=== PATIENT | female | born 1995 | race Asian ===

== ENCOUNTER 2023-10-10 07:31 | Inpatient (IN) | payer BC ==
[2023-10-10] MEDS ORDERED: Methylergonovine 0.2 MG/1 ML Amp IM PRN (16:48)
[2023-10-10] MEDS ORDERED: Misoprostol 200 MCG Tab PO PRN (16:48)
[2023-10-10] MEDS ORDERED: Sodium Chloride 0.9% 10 ML Syringe FLUSH PRN (16:48)
[2023-10-10] MEDS ORDERED: Tranexamic Acid IN NACL,ISO-OS 1,000 MG in Premix Bag 1 BAG IV PRN (16:48)
[2023-10-10] MEDS ORDERED: Sodium Chloride 0.9% 20 ML SDV IV PRN (16:48)
[2023-10-10] MEDS ORDERED: Lidocaine 1% 50 ML MDV INJECT PRN (16:48)
[2023-10-10] MEDS ORDERED: Carboprost Tromethamine 250 MCG/1 mL Vial IM PRN (16:48)
[2023-10-10] MEDS ORDERED: Terbutaline 1 MG/ML SDV SUBCUT PRN (16:48)
[2023-10-10] MEDS ORDERED: Water For Irrigation,Sterile 1,000 ML Container IRR PRN (16:48)
[2023-10-10] MEDS ORDERED: Butorphanol 2 MG/ML SDV IVPUSH PRN (16:48)
[2023-10-10] MEDS ORDERED: Sodium Chloride 0.9% 2.5 ML Syringe FLUSH PRN (16:48)
[2023-10-10] MEDS ORDERED: Oxytocin/0.9 % Sodium Chloride 30 UNIT/500 ML BAG IV SCH ×2 (17:00)
[2023-10-10] MEDS: Misoprostol 25 MCG (1/4 of 100 MCG) Tab VAG PRN ×2 (18:07→22:12)
[2023-10-10 18:52] LABS: HEMATOCRIT 37.6 % (37.0-47.0); HEMOGLOBIN 13.3 g/dL (12.0-16.0); MEAN CORPUSCULAR HGB CONC 35.4 g/dL (32.0-36.0); MEAN CORPUSCULAR VOLUME 96.2 fL (83.0-99.0); MEAN PLATELET VOLUME 13.6 fL (9.4-12.3); PLATELET COUNT,PLT 155 K/uL (150-400); RED BLOOD CELL COUNT 3.91 M/uL (4.10-5.30); WHITE BLOOD CELL COUNT,WBC 8.48 K/uL (3.9-11.3)
[2023-10-10 19:14] LABS: A/G RATIO 0.8 (0.9-1.6); ALBUMIN 2.7 g/dL (3.4-5.0); BILIRUBIN TOTAL 0.2 mg/dL (0.2-1.0); CALCIUM 8.8 mg/dL (8.5-10.1); CARBON DIOXIDE,CO2 19.9 mmol/L (21.0-32.0); CREATININE 0.7 mg/dL (0.6-1.0); EST CRCL DRUG DOSING (CG) 98.98 mL/min; POTASSIUM,K 4.1 mmol/L (3.5-5.1); PROTEIN TOTAL,TP 6.1 g/dL (6.4-8.2)
[2023-10-10 20:40] LABS: CREATININE,URINE RAND 58.1 mg/dL; PROTEIN CREATININE RATIO,URINE 0.3
[2023-10-10] MEDS: Labetalol 100 MG Tab PO SCH (21:06)
[2023-10-11] MEDS ORDERED: Calcium Carbonate 500 MG Tab.Chew PO PRN (03:07)
[2023-10-11 06:28] LABS: HEMATOCRIT 39.5 % (37.0-47.0); MEAN CORPUSCULAR HEMOGLOBIN 33.8 pg (28.0-32.0); MEAN CORPUSCULAR HGB CONC 35.4 g/dL (32.0-36.0); MEAN CORPUSCULAR VOLUME 95.4 fL (83.0-99.0); MEAN PLATELET VOLUME 12.2 fL (9.4-12.3); PLATELET COUNT,PLT 145 K/uL (150-400); RED BLOOD CELL COUNT 4.14 M/uL (4.10-5.30); WHITE BLOOD CELL COUNT,WBC 10.64 K/uL (3.9-11.3)
[2023-10-11] MEDS ORDERED: Bupivacaine 0.25% 30 ML SDV ONE (06:48)
[2023-10-11] MEDS ORDERED: fentaNYL 100 MCG/2 ML SDV ONE (06:48)
[2023-10-11] MEDS ORDERED: Ketorolac 30 MG/ML SDV ONE (06:48)
[2023-10-11] MEDS ORDERED: Ropivacaine 0.5% 5 MG/ML 30 ML SDV ONE (06:48)
[2023-10-11] MEDS ORDERED: EPINEPHrine 1 MG/1 ML Amp ONE (06:48)
[2023-10-11] MEDS ORDERED: Oxytocin 10 Units/1 ML SDV ONE (06:48)
[2023-10-11] MEDS ORDERED: ceFAZolin 1 GM Vial ONE (06:48)
[2023-10-11] MEDS ORDERED: Ondansetron 4 MG/2 ML SDV ONE (06:48)
[2023-10-11] MEDS ORDERED: Morphine PF 10 MG/10 ML SDV ONE (06:49)
[2023-10-11 06:58] LABS: INR 0.91 (0.86-1.11); PTT,PARTIAL THROMBOPLSTIN TIME 25.9 SEC (23.9-30.7)
[2023-10-11] MEDS ORDERED: Tranexamic Acid 1,000 MG/10 ML Vial ONE (07:23)
[2023-10-11] MEDS ORDERED: Oxytocin 10 Units/1 ML SDV IM PRN (08:12)
[2023-10-11] MEDS ORDERED: Ondansetron 4 MG/2 ML SDV IVPUSH PRN ×3 (08:12→08:33)
[2023-10-11] MEDS ORDERED: diphenhydrAMINE 50 MG/ML SDV IVPUSH PRN ×2 (08:12→08:33)
[2023-10-11] MEDS ORDERED: Acetaminophen/oxyCODONE 325-5 MG Tab PO PRN ×3 (08:12→08:33)
[2023-10-11] MEDS ORDERED: Misoprostol 200 MCG Tab RECTAL PRN (08:12)
[2023-10-11] MEDS ORDERED: Bisacodyl 10 MG Supp RECTAL PRN (08:12)
[2023-10-11] MEDS ORDERED: Lactated Ringers 1,000 ML IV SCH (08:15)
[2023-10-11] MEDS ORDERED: droPERidol 5 MG/2 ML SDV IVPUSH PRN (08:33)
[2023-10-11] MEDS ORDERED: fentaNYL 100 MCG/2 ML SDV IVPUSH PRN (08:33)
[2023-10-11] MEDS ORDERED: Albuterol 0.083% 2.5 MG/3 ML Neb Soln NEB PRN (08:33)
[2023-10-11] MEDS ORDERED: Metoclopramide 10 MG/2 ML SDV IVPUSH PRN (08:33)
[2023-10-11] MEDS ORDERED: HYDROmorphone 1 MG/ML Syringe IVPUSH PRN (08:33)
[2023-10-11] MEDS ORDERED: fentaNYL 50 MCG/ML SDV IVPUSH PRN (08:33)
[2023-10-11] MEDS ORDERED: Naloxone 0.4 MG/ML SDV IVPUSH PRN (08:33)
[2023-10-11] MEDS ORDERED: Morphine 2 MG/ML SYRINGE IVPUSH PRN (08:33)
[2023-10-11] MEDS ORDERED: ePHEDrine 50 MG/ML SDV IVPUSH PRN (08:33)
[2023-10-11 08:49] LABS: PH,UMBILICAL ARTERIAL 7.37 (7.18-7.38); PH,UMBILICAL VENOUS 7.361 (7.25-7.45)
[2023-10-11] MEDS: Acetaminophen 1,000 MG in Premix Bag 1 BAG IV SCH (08:53)
[2023-10-11] MEDS: Docusate Sodium 100 MG Cap PO SCH (08:55)
[2023-10-11] MEDS: Lactated Ringers 1,000 ML IV SCH (09:39)
[2023-10-11] MEDS: Simethicone 80 MG Tab.Chew PO SCH (13:47)
[2023-10-11] MEDS: Ketorolac 30 MG/ML SDV IVPUSH SCH (13:47)
[2023-10-12 06:11] LABS: HEMATOCRIT 30.7 % (37.0-47.0); HEMOGLOBIN 10.8 g/dL (12.0-16.0); MEAN CORPUSCULAR HEMOGLOBIN 34.5 pg (28.0-32.0); MEAN CORPUSCULAR HGB CONC 35.2 g/dL (32.0-36.0); MEAN CORPUSCULAR VOLUME 98.1 fL (83.0-99.0); MEAN PLATELET VOLUME 12.6 fL (9.4-12.3); PLATELET COUNT,PLT 147 K/uL (150-400); RED BLOOD CELL COUNT 3.13 M/uL (4.10-5.30); WHITE BLOOD CELL COUNT,WBC 16.18 K/uL (3.9-11.3)
[2023-10-12] MEDS: Simethicone 80 MG Tab.Chew ONE (06:58)
[2023-10-12] MEDS: Ibuprofen 800 MG Tab PO PRN (13:37)
[2023-10-12] MEDS: Lanolin 100% Cream 7 GM Tube TOP PRN (15:04)
== END 2023-10-13 13:28 | disposition home or self-care (01) | DRG 540 ==
LOC: MW.OB 07:31 → OBSVTOIN 10-11 07:31 → MW.OB 10-11 12:28
PROVIDERS: ADMIT Obstetrics & Gynecology; ATTEND Obstetrics & Gynecology
PROC: 10D00Z1 Extraction of Products of Conception, Low, Open Approach (ICD-10-PCS; principal; 2023-10-11 07:15)
DX: O14.94 Unspecified pre-eclampsia, complicating childbirth (principal); O13.4 Gestational [pregnancy-induced] hypertension without significant proteinuria, complicating childbirth; Z3A.38 38 weeks gestation of pregnancy; Z37.0 Single live birth; O99.214 Obesity complicating childbirth; O99.513 Diseases of the respiratory system complicating pregnancy, third trimester; O76 Abnormality in fetal heart rate and rhythm complicating labor and delivery; O45.93 Premature separation of placenta, unspecified, third trimester
CPT/HCPCS: 36415; 59025; 80053; 82570; 82803; 83615; 84156; 84550; 85027; 85610; 85730; 86592; 86850; 86900; 86901; A9270-GY; J0131; J0171; J0665; J0690; J1100; J1885; J2274; J2405; J2590; J2795; J3010; J3490; J7120

== ENCOUNTER 2025-01-28 05:05 | Inpatient (IN) | payer BC ==
[2025-01-28] MEDS: Lactated Ringers 1,000 ML IV SCH (05:10)
[2025-01-28] MEDS ORDERED: Sodium Chloride 0.9% 2.5 ML Syringe FLUSH PRN (05:34)
[2025-01-28] MEDS ORDERED: Sodium Chloride 0.9% 10 ML Syringe FLUSH PRN (05:34)
[2025-01-28] MEDS ORDERED: ceFAZolin 2 GM in Water For Injection, Sterile 20 ML IVPUSH ONE (05:34)
[2025-01-28] MEDS ORDERED: Citric Acid/Sodium Citrate Solution 30 ML Cup PO ONE (05:34)
[2025-01-28] MEDS ORDERED: Oxytocin/0.9 % Sodium Chloride 30 UNIT/500 ML BAG IV SCH (05:45)
[2025-01-28 05:46] LABS: MEAN PLATELET VOLUME 11.0 fL (9.4-12.3); NRBC ABSOLUTE 0.00 K/uL (0.00-0.02); NRBC PERCENT 0.0 /100WBC (0.0-0.2); PLATELET COUNT,PLT 199 K/uL (150-400); RED BLOOD CELL COUNT 4.22 M/uL (4.10-5.30); WHITE BLOOD CELL COUNT,WBC 9.10 K/uL (3.9-11.3)
[2025-01-28] MEDS ORDERED: Ondansetron 4 MG/2 ML SDV ONE (07:37)
[2025-01-28] MEDS ORDERED: Ketorolac 30 MG/ML SDV ONE (07:37)
[2025-01-28] MEDS ORDERED: Ropivacaine 0.5% 5 MG/ML 30 ML SDV ONE (07:37)
[2025-01-28] MEDS ORDERED: Oxytocin 10 Units/1 ML SDV ONE (07:37)
[2025-01-28] MEDS ORDERED: Morphine PF 10 MG/10 ML SDV ONE (07:38)
[2025-01-28] MEDS ORDERED: fentaNYL 100 MCG/2 ML SDV ONE (07:38)
[2025-01-28] MEDS ORDERED: Phenylephrine 1% 10 MG/ML SDV ONE (07:43)
[2025-01-28] MEDS ORDERED: diphenhydrAMINE 50 MG/ML SDV IVPUSH PRN (09:02)
[2025-01-28] MEDS ORDERED: Lanolin 100% Cream 7 GM Tube TOP PRN (09:02)
[2025-01-28] MEDS ORDERED: Oxytocin 10 Units/1 ML SDV IM PRN (09:02)
[2025-01-28] MEDS ORDERED: Acetaminophen/oxyCODONE 325-5 MG Tab PO PRN (09:02)
[2025-01-28] MEDS ORDERED: Naloxone 0.4 MG/ML SDV IVPUSH PRN (09:02)
[2025-01-28] MEDS ORDERED: Ondansetron 4 MG/2 ML SDV IVPUSH PRN (09:02)
[2025-01-28] MEDS ORDERED: Lactated Ringers 1,000 ML IV SCH (09:15)
[2025-01-28 09:46] LABS: PH,UMBILICAL ARTERIAL 7.3 (7.18-7.38); PH,UMBILICAL VENOUS 7.45 (7.25-7.45)
[2025-01-28] MEDS: Ketorolac 30 MG/ML SDV IVPUSH SCH (13:16)
[2025-01-29] MEDS: Acetaminophen/oxyCODONE 325-5 MG Tab PO PRN (20:43)
== END 2025-01-30 16:40 | disposition home or self-care (01) | DRG 540 ==
LOC: MW.OB 05:05
PROVIDERS: ADMIT Obstetrics & Gynecology; ATTEND Obstetrics & Gynecology
PROC: 10D00Z1 Extraction of Products of Conception, Low, Open Approach (ICD-10-PCS; principal; 2025-01-28 08:00)
DX: O34.211 Maternal care for low transverse scar from previous cesarean delivery (principal); Z3A.39 39 weeks gestation of pregnancy; Z37.0 Single live birth; Z88.8 Allergy status to other drugs, medicaments and biological substances; Z86.16 Personal history of COVID-19; Z98.890 Other specified postprocedural states; Z79.899 Other long term (current) drug therapy; Z90.49 Acquired absence of other specified parts of digestive tract
CPT/HCPCS: 01961; 36415; 51702; 64488; 82803; 85014; 85018; 85027; 86592; 86850; 86900; 86901; A9270-GY; J0173; J0665; J0690; J1100; J1885; J2274; J2371; J2405; J2590; J2795; J3010; J7120